=== PATIENT | female | born 1960 | race Caucasian/White ===

== ENCOUNTER → 2019-09-21 | Outpatient (CLI) | payer OTHER ==
--- NOTE | 2019-09-21 11:27 | DIREP ---
PROCEDURE:CT ABD/PELVIS WITH CONTRAST TECHNIQUE:The patient drank oral contrast material. Following the intravenous administration of contrast material, venous phase cuts were obtained through the abdomen and pelvis. The images were viewed at lung and soft tissue settings. Sagittal and coronal reconstructions are provided. COMPARISON:None. INDICATIONS:RUQ EPIGASTRIC PAIN FINDINGS: LOWER CHEST:The lung bases are clear. LIVER:Hepatomegaly is noted with liver measuring 18.9 cm longitudinally. No intrahepatic mass is seen. Hepatic steatosis is noted. BILIARY:Status post cholecystectomy. No dilatation of the intrahepatic biliary ducts is seen. PANCREAS:Normal. SPLEEN:Normal. URINARY TRACT:Normal. ADRENALS:Normal. AORTA/VASCULAR:Moderate atherosclerotic plaque formation is noted within the abdominal aorta. Focal plaque formation is noted in the infrarenal abdominal aorta with degree of stenosis estimated at 40%. RETROPERITONEUM:Normal. BOWEL/MESENTERY:A very small 2 cm hiatal hernia is noted. There is no evidence of bowel obstruction. No significant diverticulosis is seen. No inflammatory changes are seen within the mesenteric fat. No mesenteric lymphadenopathy is noted. The appendix appears to be surgically absent. The stomach is not well distended, however, there does appear to be diffuse thickening of the stomach wall which may be associated with gastritis. ABDOMINAL WALL:Normal. PELVIS:Status post hysterectomy without evidence of abnormal pelvic mass or lymphadenopathy. BONES:Normal. OTHER:Normal. CONCLUSION: 1. Small hiatal hernia noted. 2. There is a question of diffuse thickening of the stomach wall although this is difficult to evaluate as the stomach is not at all distended. This could be associated with gastritis. 3. Hepatic steatosis and mild hepatomegaly. 4. Status post cholecystectomy. 5. Atherosclerotic disease results in 40% focal stenosis within the infrarenal abdominal aorta. Dictated by: Wang Waldron M.D. on 09/21/2019 at 11:19 AM
== END | disposition home or self-care (01) ==
LOC: RAD 09:19
PROVIDERS: ATTEND Family Medicine
DX: K44.9 Diaphragmatic hernia without obstruction or gangrene (principal); K76.0 Fatty (change of) liver, not elsewhere classified; I70.0 Atherosclerosis of aorta; R16.0 Hepatomegaly, not elsewhere classified; Z90.710 Acquired absence of both cervix and uterus; Z90.89 Acquired absence of other organs
CPT/HCPCS: 74177; Q9965